=== PATIENT | female | born 1950 | race Caucasian/White ===

== ENCOUNTER 2017-10-31 18:16 | Emergency (ER) | payer MEDICARE, BC ==
[2017-10-31 18:35] VITALS: BP 154/80
--- NOTE | 2017-10-31 19:31 | EDM.PDOC ---
ED HPI GENERAL MEDICAL PROBLEM - General Chief Complaint: Genitourinary Problem Stated Complaint: BLADDER INFECTION Time Seen by Provider: 10/31/17 19:30 - History of Present Illness INITIAL COMMENTS - FREE TEXT/NARRATIVE: 67-year-old female presents emergency room with burning or frequency in urination. This started yesterday progressively getting worse. She did have some chills yesterday but none today. She's not had any associated nausea vomiting diarrhea constipation her discomfort is localized to the lower abdomen. 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 1 tab PO ACDINNER 10/01/15 [History] Aspirin [Tavia Chewable Aspirin] 81 mg PO DAILY 10/31/17 [History] Calcium Carbonate/Vitamin D3 [Caltrate 600 + D Soft Chew Tab] 1 each PO TID 01/12 [History] Multivit-Min/FA/Lycopene/Lut [Centrum Silver Tablet] 1 tab PO BEDTIME 10/31/17 [ History] Nitrofurantoin Monohyd/M-Cryst [Macrobid 100 mg Capsule] 100 mg PO Q12H #14 capsule 10/31/17 [Rx] Past Medical History Cardiovascular History: Reports: High Cholesterol Respiratory History: Reports: None Gastrointestinal History: Reports: GERD Genitourinary History: Reports: UTI, Recurrent TICKET MAKER History: Reports: Other (See Below) Other OB/BYN History: C-sec. x 4 Musculoskeletal History: Reports: None Psychiatric History: Reports: None Endocrine/Metabolic History: Reports: Diabetes, Type II Hematologic History: Reports: None Oncologic (Cancer) History: Reports: None - Infectious Disease History Infectious Disease History: Reports: Chicken Pox, Measles, Mumps - Past Surgical History HEENT Surgical History: Reports: Cataract Surgery GI Surgical History: Reports: Cholecystectomy Musculoskeletal Surgical History: Reports: None Social & Family History - Family History Family Medical History: Noncontributory - Tobacco Use Smoking Status *Q: Never Smoker Second Hand Smoke Exposure: No - Caffeine Use Caffeine Use: Reports: Coffee - Alcohol Use Days Per Week of Alcohol Use: 0 - Recreational Drug Use Recreational Drug Use: No ED ROS GENERAL - Review of Systems Review Of Systems: See Below Constitutional: Reports: Chills. Denies: Fever HEENT: Reports: No Symptoms Respiratory: Reports: No Symptoms Cardiovascular: Reports: No Symptoms GI/Abdominal: Reports: Abdominal Pain (Mild lower abdominal). Denies: Constipation, Diarrhea, Nausea, Vomiting : Reports: Dysuria, Frequency, Urgency. Denies: Hematuria Neurological: Reports: No Symptoms. Denies: Confusion, Dizziness ED EXAM, GI/ABD - Physical Exam Exam: See Below Exam Limited By: No Limitations General Appearance: Alert, No Apparent Distress Head: Atraumatic, Normocephalic Neck: Normal Inspection, Supple, Non-Tender, Full Range of Motion Respiratory/Chest: No Respiratory Distress, Lungs Clear, Normal Breath Sounds Cardiovascular: Regular Rate, Rhythm, No Edema, No Murmur GI/Abdominal Exam: Normal Bowel Sounds, Soft, Other (Mild low abdominal suprapubic discomfort no rigidity rebound or guarding noted) Back Exam: Normal Inspection. No: CVA Tenderness (L), CVA Tenderness (R) Extremities: Normal Inspection, No Pedal Edema Neurological: Alert, Normal Cognition Course - Vital Signs Last Recorded V/S: Last Vital Signs Temp 36.2 C 10/31/17 18:29 Pulse 84 10/31/17 18:29 Resp 18 10/31/17 18:29 BP 154/80 H 10/31/17 18:29 Pulse Ox 97 10/31/17 18:29 - Orders/Labs/Meds Labs: Laboratory Tests 10/31/17 Range/Units 19:00 Urine Color Yellow (Yellow) Urine Appearance Slt cloudy H (Clear) Urine pH 6.5 (5.0-8.0) Ur Specific [place] 1.015 (1.005-1.030) Urine Protein 1+ H (Negative) Urine Glucose (UA) Negative (Negative) Urine Ketones Negative (Negative) Urine Occult Blood 2+ H (Negative) Urine Nitrite Negative (Negative) Urine Bilirubin Negative (Negative) Urine Urobilinogen 0.2 (0.2-1.0) Ur Leukocyte Esterase 3+ H (Negative) Urine RBC 10-20 H (0-5) /hpf Urine WBC 50-75 H (0-5) /hpf Ur Epithelial Cells 5-10 H (0-5) /hpf Urine Bacteria Moderate H (FEW) /hpf Urine Mucus Not seen (FEW) /hpf Departure - Departure Time of Disposition: 19:59 Disposition: Home, Self-Care 01 Clinical Impression: UTI (urinary tract infection) - Discharge Information Prescriptions: Nitrofurantoin Monohyd/M-Cryst [Macrobid 100 mg Capsule] 100 mg PO Q12H #14 capsule Referrals: Ella Neumann MD [Primary Care Provider] - Forms: ED Department Discharge Additional Instructions: Return to the emergency room with any questions problems worsening symptoms. Follow-up with your regular physician 3-5 days after you finish the antibiotics. You been started on an antibiotic take one twice daily until all gone. Push fluids
[2017-10-31] MEDS ORDERED: Nitrofurantoin Monohydrate/Macrocrystalline 100 MG Cap PO ONE (19:58)
== END 2017-10-31 20:25 | disposition home or self-care (01) ==
LOC: JD.ED 18:16
DX: N39.0 Urinary tract infection, site not specified (principal); E11.9 Type 2 diabetes mellitus without complications; I10 Essential (primary) hypertension; E78.00 Pure hypercholesterolemia, unspecified; K21.9 Gastro-esophageal reflux disease without esophagitis; Z79.899 Other long term (current) drug therapy; Z88.5 Allergy status to narcotic agent; Z79.84 Long term (current) use of oral hypoglycemic drugs
CPT/HCPCS: 81001; 99283; A9270

== ENCOUNTER 2019-11-26 23:26 | Emergency (ER) | payer MEDICARE, BC ==
[2019-11-26 23:43] VITALS: BP 137/67; PULSE 82
[2019-11-27] MEDS ORDERED: Nitrofurantoin Monohydrate/Macrocrystalline 100 MG Cap PO STA (01:23)
--- NOTE | 2019-11-27 01:24 | EDM.PDOC ---
ED HPI GENERAL MEDICAL PROBLEM - General Chief Complaint: Genitourinary Problem Stated Complaint: UTI Time Seen by Provider: 11/27/19 01:18 Source of Information: Reports: Patient History Limitations: Reports: No Limitations - History of Present Illness INITIAL COMMENTS - FREE TEXT/NARRATIVE: Mrs. Graham is a most pleasant 69-year-old woman with a past medical history significant for obesity and diabetes, who states that she developed dysuria Wednesday night, 11/24/2019, followed by pelvic pain Wednesday morning, 11/25/2019. She states that she drank a lot of fluid and felt better up until 20:30 tonight , when she redeveloped dysuria and pelvic pain. She also developed some low back pain this evening. She has had similar symptoms in the past, due to UTIs, which she states she gets frequently. She had some watery diarrhea on Wednesday, , but no recent fever or chills, nausea, vomiting, constipation, or flank pain. The patient states that she checks her blood glucose only about once a month. It was 182 at home tonight. Here in the ED, the patient is found to be hemodynamically stable, afebrile, with a normal oxygen saturation on room air. The patient's PCP is Dr. Ella Neumann. She received an influenza vaccine this season. Pelvic Pain Score (Numeric/FACES): 7 - Related Data Allergies Allergy/AdvReac Type Severity Reaction Status Date / Time morphine Allergy Rash Verified 11/26/19 23:43 Home Meds: Home Meds Lisinopril/Hydrochlorothiazide [Lisinopril-Hctz 20-12.5 mg Tab] 1 tab PO DAILY 11/13/14 [History] Omeprazole 20 mg PO DAILY 11/13/14 [History] atorvaSTATin [Lipitor] 20 mg PO DAILY 11/13/14 [History] glipiZIDE [Glipizide Xl] 10 mg PO BID 11/13/14 [History] metFORMIN [Glucophage] 1,000 mg PO BIDMEALS 11/13/14 [History] Cranberry. 1 tab PO ACDINNER 10/01/15 [History] Aspirin [Tavia Chewable Aspirin] 81 mg PO DAILY 10/31/17 [History] Calcium Carbonate/Vitamin D3 [Caltrate 600 + D Soft Chew Tab] 1 each PO TID 01/12 [History] Multivit-Min/FA/Lycopen/Lutein [Centrum Silver Tablet] 1 tab PO BEDTIME [History] Celecoxib [CeleBREX] 100 mg PO BID 07/28/18 [History] Nitrofurantoin Macrocrystal [Nitrofurantoin] 1 cap PO Q12H #9 capsule 11/27/19 [ Rx] Past Medical History HEENT History: Reports: Impaired Vision Other HEENT History: wears eyeglasses Cardiovascular History: Reports: High Cholesterol Gastrointestinal History: Reports: GERD Musculoskeletal History: Reports: Arthritis Endocrine/Metabolic History: Reports: Diabetes, Type II, Obesity/BMI 30+ Oncologic (Cancer) History: Reports: Basal Cell Carcinoma (nose) - Infectious Disease History Infectious Disease History: Reports: Chicken Pox, Measles, Mumps - Past Surgical History HEENT Surgical History: Reports: Cataract Surgery (bilateral) GI Surgical History: Reports: Cholecystectomy (early ) Female Surgical History: Reports: Section (x 4), Tubal Ligation Oncologic Surgical History: Reports: Other (See Below) (BCC excised off nose) Social & Family History - Family History Family Medical History: Noncontributory - Tobacco Use Smoking Status *Q: Never Smoker - Caffeine Use Caffeine Use: Reports: Coffee - Alcohol Use Alcohol Use History: Yes Alcohol Use Frequency: Socially - Recreational Drug Use Recreational Drug Use: No - Living Situation & Occupation Living situation: Reports: , with Family (Son) Occupation: Retired ED ROS GENERAL - Review of Systems Review Of Systems: Comprehensive ROS is negative, except as noted in HPI. ED EXAM, RENAL/ - Physical Exam Exam: See Below Exam Limited By: No Limitations General Appearance: Alert, WD/WN, No Apparent Distress Eye Exam: Bilateral Eye: EOMI, Normal Inspection Ears: Normal External Exam, Hearing Grossly Normal Nose: Normal Inspection Throat/Mouth: Normal Inspection, Normal Lips, Normal Voice, No Airway Compromise Head: Atraumatic, Normocephalic Neck: Normal Inspection, Full Range of Motion Respiratory/Chest: No Respiratory Distress, Lungs Clear, Normal Breath Sounds, No Accessory Muscle Use Cardiovascular: Normal Peripheral Pulses, Regular Rate, Rhythm, No Edema, No Gallop, No JVD, No Murmur, No Rub GI/Abdominal: Normal Bowel Sounds, Soft, Non-Tender (including suprapubically), No Organomegaly, No Distention, No Abnormal Bruit, No Mass (Female) Exam: Deferred Rectal (Female) Exam: Deferred Back Exam: Normal Inspection, Full Range of Motion. No: CVA Tenderness (L), CVA Tenderness (R) Extremities: Normal Inspection, Normal Range of Motion, No Pedal Edema, Normal Capillary Refill Neurological: Alert, Oriented, Normal Cognition, No Motor/Sensory Deficits Psychiatric: Normal Affect Skin Exam: Warm, Dry, Intact, Normal Color, No Rash Course - Vital Signs Last Recorded V/S: Last Vital Signs Temp 36.1 C 11/26/19 23:40 Pulse 82 11/26/19 23:40 Resp 16 11/26/19 23:40 BP 137/67 11/26/19 23:40 Pulse Ox 95 11/26/19 23:40 - Orders/Labs/Meds Orders: Active Orders 24 hr Category Date Time Status CULTURE URINE [RM] Stat Lab 11/27/19 01:22 Received Labs: Laboratory Tests 11/26/19 Range/Units 23:50 Urine Color Yellow (Yellow) Urine Appearance Cloudy H (Clear) Urine pH 6.5 (5.0-8.0) Ur Specific [place] 1.020 (1.005-1.030) Urine Protein 2+ H (Negative) Urine Glucose (UA) Negative (Negative) Urine Ketones Negative (Negative) Urine Occult Blood 3+ H (Negative) Urine Nitrite Negative (Negative) Urine Bilirubin Negative (Negative) Urine Urobilinogen 0.2 (0.2-1.0) Ur Leukocyte Esterase 3+ H (Negative) U Hyaline Cast (Auto) 0-5 (0-5) /lpf Urine RBC 10-20 H (0-5) /hpf Urine WBC 50-75 H (0-5) /hpf Urine WBC Clumps Few (NOT SEEN) /hpf Ur Squamous Epith Cells 0-5 (0-5) /hpf Urine Bacteria Moderate H (FEW) /hpf Urine Mucus Few (FEW) /hpf Meds: Medications Discontinued Medications Generic Name Dose Route Start Last Admin Trade Name Freq PRN Reason Stop Dose Admin Nitrofurantoin Macrocrystals 100 mg 11/27/19 01:23 11/27/19 02:05 Macrobid PO 11/27/19 01:24 100 mg ONETIME STA Administration Phenazopyridine HCl 95 mg 11/27/19 01:58 11/27/19 02:05 Urinary Pain Relief PO 11/27/19 01:59 95 mg ONETIME STA Administration - Re-Assessments/Exams Free Text/Narrative Re-Assessment/Exam: 11/27/19 01:23 A urinalysis collected by the patient's nurse is consistent with a UTI. I have ordered a urine culture, and will start the patient on nitrofurantoin. 11/27/19 01:58 Test results discussed with the patient. As above, the patient has a UTI. She will be started on oral nitrofurantoin and Pyridium. I will submit a prescription to complete a 5-day course of nitrofurantoin, and Azo is available [id number]. The patient should remain adequately hydrated. I would like her to follow-up with a nurse from her PCPs office on 11/29/2019, to check on her urine culture results, to make sure that the organism is susceptible to nitrofurantoin. Departure - Departure Time of Disposition: 02:01 Disposition: Home, Self-Care 01 Condition: Good Clinical Impression: UTI (urinary tract infection) - Discharge Information *PRESCRIPTION DRUG MONITORING PROGRAM REVIEWED*: Not Applicable *COPY OF PRESCRIPTION DRUG MONITORING REPORT IN PATIENT JUAN MANUEL: Not Applicable Prescriptions: Nitrofurantoin Macrocrystal [Nitrofurantoin] 1 cap PO Q12H #9 capsule Instructions: Urinary Tract Infection, Adult, [id number] Referrals: Ella Neumann MD [Primary Care Provider] - Forms: ED Department Discharge Additional Instructions: You were seen in the emergency room for painful urination, pelvic pain, and lower back pain. Work-up in the ER included a urinalysis, which confirmed that you have a urinary tract infection. A sample of your urine has been sent for culture. You have been started on the antibiotic nitrofurantoin (Macrobid), and a prescription for nitrofurantoin has been sent to the [facility]. Take 1 tablet of nitrofurantoin every 12 hours, as prescribed. Finish the entire prescription unless told otherwise by a doctor. In addition to nitrofurantoin, you have also been started on Pyridium (Azo). Azo is available [id number]. You may take 1 tablet 3 times a day, up to a maximum of 9 tablets, as needed for urinary symptoms. Azo will turn your urine orange - this is normal. Stay adequately hydrated. Please follow-up with a nurse at Dr. Neumann's office this coming 11/29/2019, to have them check on your urine culture results, to make sure that you are on the correct antibiotic. If any other problems, please do not hesitate to return to the ER. Sepsis Event Note - Evaluation Sepsis Screening Result: No Definite Risk - Focused Exam Date Exam was Performed: 11/28/19 Time Exam was Performed: 00:07 - My Orders Last 24 Hours: My Active Orders 11/27/19 01:22 CULTURE URINE [RM] Stat - Assessment/Plan Last 24 Hours: My Active Orders 11/27/19 01:22 CULTURE URINE [RM] Stat
[2019-11-27] MEDS ORDERED: Phenazopyridine 95 MG Tab PO STA (01:58)
== END 2019-11-27 02:14 | disposition home or self-care (01) ==
LOC: JD.ED 23:26
DX: N39.0 Urinary tract infection, site not specified (principal); E78.00 Pure hypercholesterolemia, unspecified; E66.9 Obesity, unspecified; Z68.33 Body mass index [BMI] 33.0-33.9, adult; E11.9 Type 2 diabetes mellitus without complications; M19.90 Unspecified osteoarthritis, unspecified site; K21.9 Gastro-esophageal reflux disease without esophagitis; Z79.84 Long term (current) use of oral hypoglycemic drugs; Z79.899 Other long term (current) drug therapy; Z79.82 Long term (current) use of aspirin; Z88.5 Allergy status to narcotic agent
CPT/HCPCS: 81001; 87086; 99283; A9270; 87088; 87186

== ENCOUNTER 2020-06-02 09:39 | Emergency (ER) | payer MEDICARE, BC ==
[2020-06-02 10:01] VITALS: BP 143/59; PULSE 73
--- NOTE | 2020-06-02 11:03 | EDM.PDOC ---
ED HPI GENERAL MEDICAL PROBLEM - General Chief Complaint: Genitourinary Problem Stated Complaint: PAINFUL URINATION Time Seen by Provider: 06/02/20 09:57 Source of Information: Reports: Patient History Limitations: Reports: No Limitations - History of Present Illness INITIAL COMMENTS - FREE TEXT/NARRATIVE: The patient presents with dysuria and frequency. This started yesterday. She does have a history of UTIs. She has no fever or chills. She has no nausea, vomiting or abdominal pain. Onset: Gradual Duration: Day(s): (2) Severity: Moderate Improves with: Reports: None Worsens with: Reports: None Associated Symptoms: Reports: No Other Symptoms Pelvic Pain Score (Numeric/FACES): 3 - Related Data Allergies Allergy/AdvReac Type Severity Reaction Status Date / Time morphine Allergy Severe Rash Verified 06/02/20 10:01 Home Meds: Home Meds Lisinopril/Hydrochlorothiazide [Lisinopril-Hctz 20-12.5 mg Tab] 1 tab PO DAILY 11/13/14 [History] Omeprazole 20 mg PO DAILY 11/13/14 [History] atorvaSTATin [Lipitor] 20 mg PO DAILY 11/13/14 [History] glipiZIDE [Glipizide Xl] 10 mg PO BID 11/13/14 [History] metFORMIN [Glucophage] 1,000 mg PO BIDMEALS 11/13/14 [History] Cranberry. 1 tab PO ACDINNER 10/01/15 [History] Aspirin [Tavia Chewable Aspirin] 81 mg PO DAILY 10/31/17 [History] Calcium Carbonate/Vitamin D3 [Caltrate 600 + D Soft Chew Tab] 1 each PO TID 10/31/17 [History] Multivit-Min/FA/Lycopen/Lutein [Centrum Silver Tablet] 1 tab PO BEDTIME 10/31/17 [History] Celecoxib [CeleBREX] 100 mg PO BID 07/28/18 [History] nitrofurantoin macrocrystaL [Nitrofurantoin] 1 cap PO Q12H #9 capsule 11/27/19 [Rx] cephALEXin [Keflex] 500 mg PO BID #10 capsule 06/02/20 [Rx] Past Medical History HEENT History: Reports: Impaired Vision Other HEENT History: wears eyeglasses Cardiovascular History: Reports: High Cholesterol Respiratory History: Reports: None Gastrointestinal History: Reports: GERD Genitourinary History: Reports: UTI, Recurrent 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 x 4 Musculoskeletal History: Reports: Arthritis Psychiatric History: Reports: None Endocrine/Metabolic History: Reports: Diabetes, Type II, Obesity/BMI 30+ Hematologic History: Reports: None Oncologic (Cancer) History: Reports: Basal Cell Carcinoma (nose) Dermatologic History: Reports: Other (See Below) Other Dermatologic History: dry skin to top of scalp. - Infectious Disease History Infectious Disease History: Reports: Chicken Pox, Measles, Mumps - Past Surgical History HEENT Surgical History: Reports: Cataract Surgery (bilateral) GI Surgical History: Reports: Cholecystectomy (early 1999s) Female Surgical History: Reports: Section (x 4), Tubal Ligation Oncologic Surgical History: Reports: Other (See Below) (BCC excised off nose) Social & Family History - Family History Family Medical History: Noncontributory - Caffeine Use Caffeine Use: Reports: Coffee - Living Situation & Occupation Living situation: Reports: , with Family (Son) Occupation: Retired ED ROS GENERAL - Review of Systems Review Of Systems: See Below Constitutional: Reports: No Symptoms HEENT: Reports: No Symptoms Respiratory: Reports: No Symptoms Cardiovascular: Reports: No Symptoms Endocrine: Reports: No Symptoms GI/Abdominal: Reports: No Symptoms : Reports: Dysuria, Frequency ED EXAM, GI/ABD - Physical Exam Exam: See Below Exam Limited By: No Limitations General Appearance: Alert, No Apparent Distress Ears: Normal External Exam Nose: Normal Inspection Head: Atraumatic, Normocephalic Neck: Normal Inspection Respiratory/Chest: No Respiratory Distress, Lungs Clear, Normal Breath Sounds Cardiovascular: Regular Rate, Rhythm, No Edema, No Murmur GI/Abdominal Exam: Soft, Non-Tender, No Organomegaly, No Mass Course - Vital Signs Last Recorded V/S: Last Vital Signs Temp 96.5 F L 06/02/20 09:55 Pulse 73 06/02/20 09:55 Resp 20 06/02/20 09:55 BP 143/59 H 06/02/20 09:55 Pulse Ox 99 06/02/20 09:55 - Orders/Labs/Meds Orders: Active Orders 24 hr Category Date Time Status CULTURE URINE [RM] Stat Lab 06/02/20 10:21 Received Labs: Laboratory Tests 06/02/20 Range/Units 10:21 Urine Color Yellow (Yellow) Urine Appearance Cloudy H (Clear) Urine pH 6.0 (5.0-8.0) Ur Specific [place] 1.020 (1.005-1.030) Urine Protein 1+ H (Negative) Urine Glucose (UA) Negative (Negative) Urine Ketones Negative (Negative) Urine Occult Blood 3+ H (Negative) Urine Nitrite Negative (Negative) Urine Bilirubin Negative (Negative) Urine Urobilinogen 0.2 (0.2-1.0) Ur Leukocyte Esterase 2+ H (Negative) Urine RBC >100 H (0-5) /hpf Urine WBC 50-75 H (0-5) /hpf Urine Bacteria Few (FEW) /hpf Urine Mucus Not seen (FEW) /hpf - Re-Assessments/Exams Free Text/Narrative Re-Assessment/Exam: 06/02/20 11:01 Her UA shows a UTI. I will get her on keflex 2 times per day for 2 days. Departure - Departure Time of Disposition: 11:05 Disposition: Home, Self-Care 01 Condition: Good Clinical Impression: UTI, Urinary tract infectious disease - Discharge Information *PRESCRIPTION DRUG MONITORING PROGRAM REVIEWED*: Not Applicable *COPY OF PRESCRIPTION DRUG MONITORING REPORT IN PATIENT JUAN MANUEL: Not Applicable Prescriptions: cephALEXin [Keflex] 500 mg PO BID #10 capsule Referrals: Ella Neumann MD [Primary Care Provider] - 1 Week Additional Instructions: Drink plenty of fluids. Take the keflex 2 times per day for 5 days. Take tylenol or motrin for pain or fever. Please return if you are worse. Sepsis Event Note (ED) - Evaluation Sepsis Screening Result: No Definite Risk - Focused Exam Vital Signs: Vital Signs Temp Pulse Resp BP Pulse Ox 06/02/20 09:55 96.5 F L 73 20 143/59 H 99 - My Orders Last 24 Hours: My Active Orders 06/02/20 10:21 CULTURE URINE [RM] Stat - Assessment/Plan Last 24 Hours: My Active Orders 06/02/20 10:21 CULTURE URINE [RM] Stat
== END 2020-06-02 11:15 | disposition home or self-care (01) ==
LOC: JD.ED 09:39
DX: N39.0 Urinary tract infection, site not specified (principal); E78.00 Pure hypercholesterolemia, unspecified; K21.9 Gastro-esophageal reflux disease without esophagitis; E11.9 Type 2 diabetes mellitus without complications; E66.9 Obesity, unspecified; Z88.5 Allergy status to narcotic agent; Z79.899 Other long term (current) drug therapy; Z90.49 Acquired absence of other specified parts of digestive tract; Z98.51 Tubal ligation status
CPT/HCPCS: 81001; 87086; 87088; 87186; 99282; 99283

== ENCOUNTER 2021-01-03 03:58 | Emergency (ER) | payer MEDICARE, BC ==
[2021-01-03 04:12] VITALS: BP 164/76; PULSE 75
--- NOTE | 2021-01-03 04:27 | EDM.PDOC ---
ED HPI GENERAL MEDICAL PROBLEM - General Chief Complaint: Genitourinary Problem Stated Complaint: UTI Time Seen by Provider: 01/03/21 04:10 Source of Information: Reports: Patient History Limitations: Reports: No Limitations - History of Present Illness INITIAL COMMENTS - FREE TEXT/NARRATIVE: Mrs. Graham is a most pleasant 70-year-old woman who now presents the ED with a concern that she may have a UTI. She states that she developed dysuria and suprapubic pressure around 2:00 this morning. No associated fever, nausea, vomiting, or flank pain. She states that her current symptoms are essentially the same as when she has previously been diagnosed with cystitis, which she gets fairly often. She did not take any [id number] or home remedies prior to coming to the ED. Here in the ED, the patient's initial BP is found to be elevated at 164/76, otherwise, she is hemodynamically stable, afebrile, saturating 97% on room air. Prior to 2:00 this morning, the patient denies having a recent fever, chills, sore throat, ear pain, nasal or sinus congestion, cough, dyspnea, chest pain, palpitations, nausea, vomiting, constipation, diarrhea, abdominal pain, urinary symptoms, recent weight gain or weight loss, recent bloody bowel movements or black bowel movements, recent joint aches, headaches, or rashes. The patient's PCP is Dr. Ella Neumann. She states that she already received an influenza vaccine this season. Abdomen Pain Score (Numeric/FACES): 7 - Related Data Allergies Allergy/AdvReac Type Severity Reaction Status Date / Time morphine Allergy Severe Rash Verified 01/03/21 04:12 Home Meds: Home Meds Lisinopril/Hydrochlorothiazide [Lisinopril-Hctz 20-12.5 mg Tab] 1 tab PO DAILY 11/13/14 [History] Omeprazole 20 mg PO DAILY 11/13/14 [History] atorvaSTATin [Lipitor] 20 mg PO DAILY 11/13/14 [History] glipiZIDE [Glipizide Xl] 10 mg PO BID 11/13/14 [History] metFORMIN [Glucophage] 1,000 mg PO BIDMEALS 11/13/14 [History] Cranberry. 1 tab PO ACDINNER 10/01/15 [History] Aspirin [Tavia Chewable Aspirin] 81 mg PO DAILY 10/31/17 [History] Calcium Carbonate/Vitamin D3 [Caltrate 600 + D Soft Chew Tab] 1 each PO TID 10/31/17 [History] Multivit-Min/FA/Lycopen/Lutein [Centrum Silver Tablet] 1 tab PO BEDTIME 10/31/17 [History] Celecoxib [CeleBREX] 100 mg PO BID 07/28/18 [History] Semaglutide [Ozempic] 1 mg SQ FR 01/03/21 [History] Spironolactone [Aldactone] 25 mg PO DAILY 01/03/21 [History] nitrofurantoin macrocrystaL [Nitrofurantoin] 1 cap PO Q12H #9 capsule 01/03/21 [Rx] Past Medical History HEENT History: Reports: Impaired Vision (wears glasses) Cardiovascular History: Reports: High Cholesterol Gastrointestinal History: Reports: GERD Musculoskeletal History: Reports: Osteoarthritis Endocrine/Metabolic History: Reports: Diabetes, Type II, Obesity/BMI 30+ Oncologic (Cancer) History: Reports: Basal Cell Carcinoma (nose) - Infectious Disease History Infectious Disease History: Reports: Chicken Pox, Measles, Mumps - Past Surgical History HEENT Surgical History: Reports: Cataract Surgery (bilateral) GI Surgical History: Reports: Cholecystectomy (early ) Female Surgical History: Reports: Section (x 4), Tubal Ligation Oncologic Surgical History: Reports: Other (See Below) (BCC excision from nose) Social & Family History - Tobacco Use Tobacco Use Status *Q: Never Tobacco User - Caffeine Use Caffeine Use: Reports: Coffee - Alcohol Use Alcohol Use History: Yes Alcohol Use Frequency: Socially - Recreational Drug Use Recreational Drug Use: No - Living Situation & Occupation Living situation: Reports: , Alone Occupation: Retired ED ROS GENERAL - Review of Systems Review Of Systems: Comprehensive ROS is negative, except as noted in HPI. ED EXAM, RENAL/ - Physical Exam Exam: See Below Exam Limited By: No Limitations General Appearance: Alert, WD/WN, No Apparent Distress Eye Exam: Bilateral Eye: EOMI, Normal Inspection (s/p cataract surgery) Ears: Normal External Exam Nose: Normal Inspection Throat/Mouth: Normal Inspection, Normal Lips, Normal Voice, No Airway Compromise Head: Atraumatic, Normocephalic Neck: Normal Inspection, Full Range of Motion Respiratory/Chest: No Respiratory Distress, Lungs Clear, Normal Breath Sounds, No Accessory Muscle Use Cardiovascular: Normal Peripheral Pulses, Regular Rate, Rhythm, No Gallop, No JVD, No Murmur, No Rub GI/Abdominal: Normal Bowel Sounds, Soft, No Organomegaly, No Distention, No Abnormal Bruit, No Mass, Tender (suprapubic discomfort/pressure when palpated) Back Exam: Normal Inspection, Full Range of Motion. No: CVA Tenderness (L), CVA Tenderness (R) Extremities: Normal Inspection, Normal Range of Motion, Normal Capillary Refill Neurological: Alert, Oriented, Normal Cognition, No Motor/Sensory Deficits Psychiatric: Normal Affect Skin Exam: Warm, Dry, Intact, Normal Color, No Rash Course - Vital Signs Last Recorded V/S: Last Vital Signs Temp 36.1 C 01/03/21 04:10 Pulse 75 01/03/21 04:10 Resp 16 01/03/21 04:10 BP 164/76 H 01/03/21 04:10 Pulse Ox 97 01/03/21 04:10 - Orders/Labs/Meds Labs: Laboratory Tests 01/03/21 Range/Units 04:40 Urine Color Yellow (Yellow) Urine Appearance Cloudy H (Clear) Urine pH 6.0 (5.0-8.0) Ur Specific [place] 1.015 (1.005-1.030) Urine Protein 2+ H (Negative) Urine Glucose (UA) Negative (Negative) Urine Ketones Negative (Negative) Urine Occult Blood 3+ H (Negative) Urine Nitrite Negative (Negative) Urine Bilirubin Negative (Negative) Urine Urobilinogen 0.2 (0.2-1.0) Ur Leukocyte Esterase 3+ H (Negative) Urine RBC 0-5 (0-5) /hpf Urine WBC >100 H (0-5) /hpf Urine WBC Clumps Few (NOT SEEN) /hpf Ur Squamous Epith Cells 0-5 (0-5) /hpf Urine Bacteria Few (FEW) /hpf Urine Mucus Not seen (FEW) /hpf - Re-Assessments/Exams Free Text/Narrative Re-Assessment/Exam: 01/03/21 04:22 As above, the patient developed dysuria and suprapubic pressure around 2:00 this morning, with no associated fever, nausea, vomiting, or flank pain. Her current symptoms are the same as when she has had UTIs in the past. Her physical exam reveals suprapubic tenderness, but is otherwise unremarkable. I have ordered a urinalysis by clean-catch to evaluate. 01/03/21 05:06 The patient's urinalysis is remarkable for 3+ occult blood with 0-5 RBCs, 3+ leukocyte esterase with >100 WBCs, nitrate negative with few bacteria, and 0-5 squamous epithelial cells. Based on the above, I will order a urine culture, and start the patient on nitrofurantoin and Pyridium. Departure - Departure Time of Disposition: 05:11 Disposition: Home, Self-Care 01 Condition: Good Clinical Impression: Cystitis - Discharge Information *PRESCRIPTION DRUG MONITORING PROGRAM REVIEWED*: Not Applicable *COPY OF PRESCRIPTION DRUG MONITORING REPORT IN PATIENT JUAN MANUEL: Not Applicable Referrals: Ella Neumann MD [Primary Care Provider] - Forms: ED Department Discharge Additional Instructions: You were seen in the emergency room after developing painful urination and lower abdominal pressure this morning. Work-up in the ER included a urinalysis. Your urinalysis found white blood cells in your urine, most likely caused by cystitis (a urinary tract infection). A sample of your urine has been sent for culture. You have been started on the antibiotic nitrofurantoin, and a prescription for nitrofurantoin has been sent to the [facility] pharmacy, located at [address] [place] [address]. Take 1 tablet of nitrofurantoin every 12 hours, starting this evening, 01/03/2021, as prescribed. Finish the entire prescription unless told otherwise by your doctor. You have also been started on Pyridium, a medicine to relieve the pain from cystitis. Pyridium is available [id number], sold as Azo. You may take 1 tablet of Azo 3 times a day, for 2 days, for a total of 6 tablets. Be aware that the first of those 6 tablets was given to you in the ER. Be aware that Azo will turn your urine orange - that is normal. We recommend that you stay adequately hydrated. It does not really matter what type of fluid you drink, just so long as you do not get dehydrated. We recommend that you contact the office of your PCP, Dr. Ella Neumann, this coming 01/06/2021, to have them check on your urine culture results, to make sure that you are on the correct antibiotic. If any other problems, please do not hesitate to return to the ER. Sepsis Event Note (ED) - Evaluation Sepsis Screening Result: No Definite Risk - Focused Exam Vital Signs: Vital Signs Temp Pulse Resp BP Pulse Ox 01/03/21 04:10 36.1 C 75 16 164/76 H 97
[2021-01-03] MEDS ORDERED: Nitrofurantoin Monohydrate/Macrocrystalline 100 MG Cap PO STA (05:07)
[2021-01-03] MEDS ORDERED: Phenazopyridine 95 MG Tab PO STA (05:08)
== END 2021-01-03 05:23 | disposition home or self-care (01) ==
LOC: JD.ED 03:58
DX: N30.90 Cystitis, unspecified without hematuria (principal); E78.00 Pure hypercholesterolemia, unspecified; K21.9 Gastro-esophageal reflux disease without esophagitis; M19.90 Unspecified osteoarthritis, unspecified site; E11.9 Type 2 diabetes mellitus without complications; E66.9 Obesity, unspecified; Z68.30 Body mass index [BMI] 30.0-30.9, adult; Z79.84 Long term (current) use of oral hypoglycemic drugs
CPT/HCPCS: 81001; 87086; 99284; A9270; 99283

== ENCOUNTER 2022-12-13 10:55 | Emergency (ER) | payer MEDICARE, BC ==
[2022-12-13 12:06] LABS: ESTIMATED GFR 59 mL/min (>60)
[2022-12-13 12:54] VITALS: BP 104/67; PULSE 71
== END 2022-12-13 12:45 | disposition home or self-care (01) ==
LOC: JD.ED 10:55
DX: N30.90 Cystitis, unspecified without hematuria (principal); E78.00 Pure hypercholesterolemia, unspecified; K21.9 Gastro-esophageal reflux disease without esophagitis; E11.9 Type 2 diabetes mellitus without complications; E66.9 Obesity, unspecified; Z68.30 Body mass index [BMI] 30.0-30.9, adult; Z88.5 Allergy status to narcotic agent; Z79.899 Other long term (current) drug therapy; Z79.84 Long term (current) use of oral hypoglycemic drugs; Z79.82 Long term (current) use of aspirin
CPT/HCPCS: 36415; 80053; 81001; 85025; 86140; 87086; 87088; 87186; 99283; 99284

== ENCOUNTER 2024-04-29 09:41 | Emergency (ER) | payer MEDICARE, BC ==
[2024-04-29 10:53] LABS: APPEARANCE,URINE CLEAR (Clear); BILIRUBIN,URINE NEGATIVE (Negative); COLOR,URINE YELLOW (Yellow); GLUCOSE,URINE NEGATIVE (Negative); KETONES,URINE NEGATIVE (Negative); LEUKOCYTE ESTERASE,URINE 2+ (Negative); NITRITE,URINE POSITIVE (Negative); OCCULT BLOOD,URINE 1+ (Negative); PH,URINE 6.5 (5.0-8.0); PROTEIN,URINE NEGATIVE (Negative); UROBILINOGEN,URINE 0.2 (0.2-1.0)
[2024-04-29 10:58] LABS: BACTERIA,URINE MANY /hpf (FEW); EPITHELIAL CELLS,URINE 0-5 /hpf (0-5); MUCUS,URINE FEW /hpf (FEW); RBC,URINE 20-30 /hpf (0-5); WBC,URINE 50-75 /hpf (0-5)
[2024-04-29 17:50] VITALS: BP 118/61; PULSE 62
== END 2024-04-29 12:00 | disposition home or self-care (01) ==
LOC: JD.ED 09:41
DX: N30.00 Acute cystitis without hematuria (principal); K21.9 Gastro-esophageal reflux disease without esophagitis; M19.90 Unspecified osteoarthritis, unspecified site; E78.00 Pure hypercholesterolemia, unspecified; E66.9 Obesity, unspecified; E11.9 Type 2 diabetes mellitus without complications; Z68.28 Body mass index [BMI] 28.0-28.9, adult; Z88.5 Allergy status to narcotic agent; Z79.82 Long term (current) use of aspirin; Z79.84 Long term (current) use of oral hypoglycemic drugs; Z79.899 Other long term (current) drug therapy; Z90.49 Acquired absence of other specified parts of digestive tract
CPT/HCPCS: 81001; 87086; 87088; 87186; 99283

== ENCOUNTER 2024-07-20 12:35 | Emergency (ER) | payer MEDICARE, BC ==
[2024-07-20] MEDS ORDERED: Sodium Chloride 0.9% 45 ML IV SCH ×2 (13:00→13:01)
[2024-07-20] MEDS ORDERED: Sodium Chloride 0.9% 10 ML Syringe FLUSH PRN (13:00)
[2024-07-20 13:03] VITALS: BP 151/70; PULSE 73
[2024-07-20 13:14] LABS: BASOPHILS PERCENT AUTO 0.3 % (0.0-1.0); EOSINOPHILS ABSOLUTE AUTO 0.1 K/mm3 (0.0-0.4); HEMATOCRIT 37.7 % (37.0-47.0); HEMOGLOBIN 12.8 gm/dl (12.0-16.0); IMMATURE GRAN ABSOLUTE AUTO 0.01 K/mm3 (0.00-0.05); IMMATURE GRAN PERCENT AUTO 0.2 % (0.0-0.4); LYMPHOCYTES ABSOLUTE AUTO 1.8 K/mm3 (1.0-4.8); LYMPHOCYTES PERCENT AUTO 29.2 % (24.0-44.0); MEAN CORPUSCULAR HEMOGLOBIN 29.4 pg (28.0-32.0); MEAN CORPUSCULAR VOLUME 86.5 fl (83.0-99.0); MEAN PLATELET VOLUME 9.2 fl (9.4-12.3); MONOCYTES ABSOLUTE AUTO 0.4 K/mm3 (0.0-0.8); MONOCYTES PERCENT AUTO 6.9 % (0.0-8.0); NEUTROPHILS ABSOLUTE AUTO 3.9 K/mm3 (1.8-7.7); NEUTROPHILS PERCENT AUTO 62.4 % (41.0-71.0); PLATELET COUNT,PLT 214 K/mm3 (150-400); RED BLOOD CELL COUNT 4.36 M/mm3 (4.10-5.30); WHITE BLOOD CELL COUNT,WBC 6.19 K/mm3 (3.9-11.3)
[2024-07-20] MEDS: Sodium Chloride 0.9% 10 ML Syringe FLUSH PRN (13:14)
[2024-07-20] MEDS: Iopamidol 755 Mg/ML 100 ML Bottle IVPUSH ONE (13:14)
[2024-07-20] MEDS: Ondansetron 4 MG/2 ML SDV IVPUSH ONE (13:30)
[2024-07-20] MEDS: Meclizine 25 MG Tab PO ONE (13:30)
[2024-07-20 13:32] LABS: INR 0.93; PROTHROMBIN TIME 9.9 SECONDS (9.7-12.0)
[2024-07-20 13:33] LABS: PTT,PARTIAL THROMBOPLSTIN TIME 25.4 SECONDS (21.7-31.4)
[2024-07-20 13:36] LABS: A/G RATIO 1.3 (1-2); ANION GAP 11.8 (5-15); BILIRUBIN TOTAL 0.7 mg/dL (0.2-1.0); BUN/CREATININE RATIO 13.3 (14-18); CALCIUM 9.6 mg/dL (8.5-10.1); CREATININE 0.9 mg/dL (0.55-1.02); EST CRCL DRUG DOSING (CG) 44.68 mL/min; POTASSIUM,K 3.8 mEq/L (3.5-5.1)
== END 2024-07-20 15:24 | disposition home or self-care (01) ==
LOC: JD.ED 12:35
DX: R42 Dizziness and giddiness (principal); E87.1 Hypo-osmolality and hyponatremia; I10 Essential (primary) hypertension; K21.9 Gastro-esophageal reflux disease without esophagitis; E66.9 Obesity, unspecified; E11.9 Type 2 diabetes mellitus without complications; Z68.28 Body mass index [BMI] 28.0-28.9, adult; Z88.5 Allergy status to narcotic agent; Z79.82 Long term (current) use of aspirin; Z79.84 Long term (current) use of oral hypoglycemic drugs; Z79.899 Other long term (current) drug therapy; Z90.49 Acquired absence of other specified parts of digestive tract
CPT/HCPCS: 36415; 70450; 70496; 70498; 80053; 82947; 84484; 85025; 85610; 85730; 93005; 96374; 99284; J2405; J3490; Q9967; A9270-GY